=== PATIENT | male | born 1955 | race Caucasian/White ===

== ENCOUNTER → 2025-03-21 | Outpatient (CLI) | payer MEDICARE, SELFPAY ==
--- NOTE | 2025-03-21 16:00 | XR_ITS ---
Examination: Ultrasound abdominal aorta Date and time: March 21, 2025 1610 hours INDICATIONS: Nicotine dependence smoking history years TECHNIQUE AND FINDINGS: Multiple axial sonographic images abdominal aorta Transverse dimension proximal aorta 2.2 cm mid aorta 1.9 cm distal aorta 1.7 cm right iliac 0.7 cm left iliac 0.6 cm IMPRESSION: Negative for abdominal aortic aneurysm
== END | disposition home or self-care (01) ==
PROVIDERS: PCP Physician Assistant Medical; Referring Provider Physician Assistant Medical; Visit Provider Physician Assistant Medical
DX: Z13.6 Encounter for screening for cardiovascular disorders (principal); F17.211 Nicotine dependence, cigarettes, in remission
CPT/HCPCS: 76706

== ENCOUNTER → 2025-05-29 | Outpatient (CLI) | payer MEDICARE, SELFPAY ==
--- NOTE | 2025-05-29 08:30 | XR_ITS ---
Examination: CT high resolution chest low dose screening, without contrast. 2-D sagittal reconstructions. 2-D coronal reconstructions. 3-D reconstructions. Date and time of exam: May 29, 2025, 0852 hours INDICATIONS: Smoking history 30 years CTDI: vol (mGy): 13 DLP: (mGycm): 508 Technique: Multiple 1.25 mm axial sections of the chest without intravenous contrast have been obtained. 2-D sagittal and coronal reconstructions have been obtained. 3-D reconstructions have been obtained. Low dose protocols were performed. One or more of the following dose reduction techniques were used; automated exposure control, adjustment of the mA and/or KV according to patient size, use of iterative reconstruction technique. Findings: No thoracic aortic aneurysm dilatation Pulmonary artery segments are not enlarged Prominent calcification left anterior descending coronary artery No paratracheal tracheobronchial or bronchopulmonary adenopathy 2 mm pulmonary nodule lingular segment image 201 3 mm pulmonary nodule right lower lobe image 210 3 mm pleural-based pulmonary nodule right lower lobe image 234 2 mm pulmonary nodule left lower lobe image 254 No pneumonia or pulmonary edema No visualized liver or splenic lesion No gallstones No pancreatic or adrenal mass Moderate osteopenia IMPRESSION: Noncalcified pulmonary nodules as above, with the study as baseline recommend 6-month follow-up CT chest without contrast
== END | disposition home or self-care (01) ==
PROVIDERS: Referring Provider Physician Assistant Medical; Visit Provider Physician Assistant Medical
DX: Z12.2 Encounter for screening for malignant neoplasm of respiratory organs (principal); R91.8 Other nonspecific abnormal finding of lung field; F17.211 Nicotine dependence, cigarettes, in remission
CPT/HCPCS: 71271